=== PATIENT | male | born 1955 | race Caucasian/White ===

== ENCOUNTER 2016-11-06 06:11 | Day surgery (SDC) | payer BC ==
[2016-11-06] MEDS ORDERED: fentaNYL 100 MCG/2 ML SDV ONE (06:13)
[2016-11-06] MEDS ORDERED: Midazolam 1 MG/ML 2 ML SDV ONE (06:13)
[2016-11-06] MEDS ORDERED: Dextrose 5%-0.45% NaCl 1,000 ML IV SCH (07:00)
[2016-11-06] MEDS ORDERED: Sodium Chloride 0.9% 10 ML Syringe FLUSH PRN (07:00)
[2016-11-06] MEDS ORDERED: fentaNYL 100 MCG/2 ML SDV IV ONE ×3 (07:34→16:15)
[2016-11-06] MEDS ORDERED: Midazolam 1 MG/ML 2 ML SDV IV ONE ×7 (07:36→16:15)
--- NOTE | 2016-11-06 09:46 | OR ---
DATE: 11/06/2016 PROCEDURE: Total colonoscopy, NBI, cold snare polypectomy, and multiple pinch biopsies. INSTRUMENT USED: CF-H180AL Olympus video colonoscope. PREMEDICATIONS: Fentanyl 100 mcg intravenous, Versed 4 mg intravenous. Nasal 2 L O2 cannula. The procedure was done under pulse oximetry, BP recording, and cardiac rehab nurse. INDICATION: The patient with previous hyperplastic and erythematous polyps and recent chronic diarrhea. Total colonoscopic examination is done for detection of any polypoid lesions and removal, biopsies to be obtained for microscopic colitis if indicated, endoscopic hemostasis therapy if needed. DESCRIPTION OF PROCEDURE: Initial rectal exam was unremarkable. Rigid anoscopy showed small internal hemorrhoids without bleeding from them. The colonoscope was passed with ease. Scattered diverticula were noted, more so in the distal left colon along with some deformity. Patchy areas of erythema were noted in the distal descending colon, NBI views were obtained, multiple pinch biopsies were obtained and sent for histopathology. The scope was passed with ease up to the ileocecal area, photographs were taken of the normal- appearing cecum, identified by landmarks of appendiceal orifice and double- bulged ileocecal folds. No bleeding was noted from any of the visualized areas at the commencement of the examination. No stricture. No vascular ectasia. No large isolated ulcerations seen. In the proximal ascending colon, diminutive 3 mm sized benign-appearing polyp was noted, NBI views were obtained, photographs were taken, cold snare polypectomy was done, the tissue was retrieved and sent for histopathology. Probing the proximal sides of folds and flexures, using adequate distention and clearing up the stool material, withdrawal of the scope was made. No bleeding was noted from any of the visualized areas at the completion of examination. IMPRESSION: 1. Internal hemorrhoids. 2. Diminutive cecal polyp. 3. Diverticulosis. The patient tolerated the procedure well. [facility] /[id number]
== END 2016-11-06 09:25 | disposition home or self-care (01) ==
LOC: DL.ENDO 06:11
PROVIDERS: ATTEND Internal Medicine Gastroenterology
DX: D12.2 Benign neoplasm of ascending colon (principal); K57.30 Diverticulosis of large intestine without perforation or abscess without bleeding; K64.8 Other hemorrhoids; I10 Essential (primary) hypertension; E66.9 Obesity, unspecified
CPT/HCPCS: 45380; 45385; J2250; J3010; J7042

== ENCOUNTER 2022-06-23 20:39 | Emergency (ER) | payer MEDICARE ==
[2022-06-23] MEDS ORDERED: Sodium Chloride 0.9% 10 ML Syringe FLUSH PRN (21:08)
[2022-06-23] MEDS ORDERED: diphenhydrAMINE 50 MG/ML SDV IVPUSH ONE (21:09)
[2022-06-23 21:46] LABS: ANION GAP 17.7 mEq/L (7-13); CHLORIDE,CL 98 mmol/L (98-107); ESTIMATED GFR 55 mL/min (>=60); SODIUM,NA 134 mmol/L (136-145)
[2022-06-23] MEDS ORDERED: Sodium Chloride 0.9% 1,000 ML IV ONE ×2 (21:53→22:52)
[2022-06-23] MEDS ORDERED: Calamine/Zinc Oxide Lotion 118 ML Bottle TOP PRN (22:12)
[2022-06-23] MEDS ORDERED: Iopamidol 755 Mg/ML 100 ML Bottle IVPUSH ONE (22:16)
[2022-06-24] MEDS ORDERED: Lidocaine 2% Jelly 5 ML Tube TOP ONE (00:01)
== END 2022-06-24 03:50 | disposition home or self-care (01) ==
LOC: DL.ED 20:39
DX: E11.51 Type 2 diabetes mellitus with diabetic peripheral angiopathy without gangrene (principal); I74.5 Embolism and thrombosis of iliac artery; I72.8 Aneurysm of other specified arteries; E11.40 Type 2 diabetes mellitus with diabetic neuropathy, unspecified; E78.00 Pure hypercholesterolemia, unspecified; I10 Essential (primary) hypertension; F17.210 Nicotine dependence, cigarettes, uncomplicated; E66.9 Obesity, unspecified; Z88.0 Allergy status to penicillin; Z79.84 Long term (current) use of oral hypoglycemic drugs; Z79.82 Long term (current) use of aspirin; Z79.899 Other long term (current) drug therapy; Z68.32 Body mass index [BMI] 32.0-32.9, adult
CPT/HCPCS: 36415; 73701; 80053; 84145; 84443; 85025; 86140; 96361; 96374; 99284; J1200; J3490; J7030; Q9967

== ENCOUNTER 2024-12-27 15:32 | Emergency (ER) | payer MEDICARE ==
[2024-12-27] MEDS: cefTRIAXone 1 GM, Lidocaine 1% 2.1 ML IM ONE (15:55)
[2024-12-27] MEDS: Take Home: Doxycycline 100 MG Cap, 4 Cap Pack PO ONE (16:03)
== END 2024-12-27 16:07 | disposition home or self-care (01) ==
LOC: DL.ED 15:32
DX: J32.9 Chronic sinusitis, unspecified (principal); B96.89 Other specified bacterial agents as the cause of diseases classified elsewhere; I10 Essential (primary) hypertension; E11.9 Type 2 diabetes mellitus without complications; Z88.0 Allergy status to penicillin; Z88.8 Allergy status to other drugs, medicaments and biological substances; Z79.4 Long term (current) use of insulin; Z79.84 Long term (current) use of oral hypoglycemic drugs; Z79.899 Other long term (current) drug therapy
CPT/HCPCS: 96372; 99282; A9270; J0696; J2003; 99284

== ENCOUNTER 2025-07-06 12:38 | Emergency (ER) | payer MEDICARE | END 2025-07-06 13:20 | disposition home or self-care (01) | LOC: DL.ED 12:38 | DX: E11.65 Type 2 diabetes mellitus with hyperglycemia (principal); I10 Essential (primary) hypertension; E78.00 Pure hypercholesterolemia, unspecified; Z88.0 Allergy status to penicillin; Z88.8 Allergy status to other drugs, medicaments and biological substances; Z79.899 Other long term (current) drug therapy; Z79.84 Long term (current) use of oral hypoglycemic drugs; Z79.4 Long term (current) use of insulin | CPT/HCPCS: 99283; 99284 ==